=== PATIENT | female | born 1980 | race Caucasian/White ===

== ENCOUNTER → 2022-01-23 09:22 | Outpatient (CLI) | payer OTHER, SELFPAY ==
[2022-01-22 19:01] LABS: Alanine Aminotransferase 35 U/L (12-78); Albumin Level 3.8 g/dl (3.5-5.0); Albumin/Globulin Ratio 1.7 (1.1-1.8); Alkaline Phosphatase 51 U/L (38-126); Anion Gap 9.3 mEq/L (5-15); Aspartate Amino Transferase 56 U/L (14-36); Blood Urea Nitrogen 12 mg/dl (7-17); Calcium 9.1 mg/dl (8.4-10.2); Carbon Dioxide 24 mmol/L (22.0-30.0); Chloride 107 mmol/L (98-107); Estimated Glomerular Filt Rate 135 ml/min (>60); GFR (African American) 163 ML/MIN (>60); Globulin 2.3 g/dL (1.3-3.2); Glucose 125 mg/dl (74-100); Potassium 4.3 mmoL/L (3.5-5.1); Sodium 136 mmol/L (136-145); Total Protein,Serum 6.1 g/dl (6.3-8.2)
[2022-01-22 19:04] LABS: Bilirubin,Total < 0.1 mg/dl (0.2-1.3)
[2022-01-22 19:25] LABS: Thyroid Stimulating Hormone 1.41 uIU/mL (0.465-4.68)
== END ==
PROVIDERS: PCP Family Medicine; Visit Provider Family Medicine
DX: F41.8 Other specified anxiety disorders (principal)
CPT/HCPCS: 80053; 84443

== ENCOUNTER → 2022-06-22 08:11 | Outpatient (CLI) | payer OTHER, SELFPAY ==
[2022-07-07 18:55] LABS: Basophils # 0.1 K/mm3 (0-0.2); Basophils % 0.9 % (0.1-2.0); Eosinophils % 0.6 % (0.1-12.0); Hematocrit 38.7 % (37.0-47.0); Hemoglobin 11.8 g/dL (12.2-16.2); Lymphocytes # 1.6 K/mm3 (0.7-4.5); Lymphocytes % 21.6 % (10-50); Mean Corpuscular HGB Conc 30.3 g/dL (31.8-35.4); Mean Corpuscular Hemoglobin 30.7 pg (27.0-31.2); Monocytes # 0.4 K/mm3 (0.1-1.0); Monocytes % 5.9 % (1.7-9.3); Neutrophils # 5.3 K/mm3 (1.8-7.8); Platelet Count 218 K/mm3 (142-424); Red Blood Count 3.83 M/mm3 (4.20-5.40); Red Cell Distribution Width 15.6 % (11.5-17.5); White Blood Count 7.5 K/mm3 (4.8-10.8)
[2022-07-07 18:57] LABS: Alanine Aminotransferase 26 U/L (12-78); Albumin Level 4.1 g/dl (3.5-5.0); Albumin/Globulin Ratio 1.8 (1.1-1.8); Alkaline Phosphatase 47 U/L (38-126); Aspartate Amino Transferase 46 U/L (14-36); Bilirubin,Total 0.3 mg/dl (0.2-1.3); Blood Urea Nitrogen 13 mg/dl (7-17); Calcium 8.4 mg/dl (8.4-10.2); Carbon Dioxide 25 mmol/L (22.0-30.0); Chloride 106 mmol/L (98-107); Estimated Glomerular Filt Rate 91 ml/min (>60); GFR (African American) 111 ML/MIN (>60); Globulin 2.3 g/dL (1.3-3.2); Glucose 106 mg/dl (74-100); Sodium 137 mmol/L (136-145); Total Protein,Serum 6.4 g/dl (6.3-8.2)
== END ==
PROVIDERS: PCP Family Medicine; Visit Provider Family Medicine
DX: J32.9 Chronic sinusitis, unspecified (principal)
CPT/HCPCS: 80053; 85025

== ENCOUNTER 2024-02-21 14:29 | Outpatient (CLI) | payer OTHER, SELFPAY ==
[2024-02-21 22:08] LABS: Basophils % 0.7 % (0.1-2.0); Eosinophils % 0.7 % (0.1-12.0); Hemoglobin 14.8 g/dL (12.2-16.2); Lymphocytes # 1.9 K/mm3 (0.7-4.5); Lymphocytes % 35.8 % (10-50); Mean Corpuscular HGB Conc 31.5 g/dL (31.8-35.4); Mean Corpuscular Hemoglobin 34.2 pg (27.0-31.2); Mean Corpuscular Volume 108.4 fl (81-99); Mean Platelet Volume 9.3 fl (7.4-10.4); Monocytes # 0.2 K/mm3 (0.1-1.0); Monocytes % 4.4 % (1.7-9.3); Neutrophils # 3.1 K/mm3 (1.8-7.8); Neutrophils % 58.4 % (37.0-80.0); Platelet Count 178 K/mm3 (142-424); Red Blood Count 4.33 M/mm3 (4.20-5.40); Red Cell Distribution Width 12.8 % (11.5-17.5); White Blood Count 5.3 K/mm3 (4.8-10.8)
[2024-02-21 22:26] LABS: Alanine Aminotransferase 36 U/L (12-78); Albumin/Globulin Ratio 1.5 (1.1-1.8); Alkaline Phosphatase 46 U/L (38-126); Anion Gap 9.2 mEq/L (5-15); Aspartate Amino Transferase 64 U/L (14-36); Bilirubin,Total 0.6 mg/dl (0.2-1.3); Blood Urea Nitrogen 9 mg/dl (7-17); Calcium 9.5 mg/dl (8.4-10.2); Carbon Dioxide 27 mmol/L (22.0-30.0); Chloride 102 mmol/L (98-107); Estimated Glomerular Filt Rate 90 ml/min (>60); GFR (African American) 109 ML/MIN (>60); Globulin 2.6 g/dL (1.3-3.2); Glucose 124 mg/dl (74-100); Potassium 4.2 mmoL/L (3.5-5.1); Sodium 134 mmol/L (136-145); Total Protein,Serum 6.6 g/dl (6.3-8.2)
[2024-02-21 22:50] LABS: Thyroid Stimulating Hormone 2.95 uIU/mL (0.465-4.68)
== END 2024-02-21 23:59 | disposition home or self-care (01) ==
LOC: LAB.DROPOF 02-22 13:54
PROVIDERS: PCP Family Medicine; Visit Provider Family Medicine
DX: I10 Essential (primary) hypertension (principal); F41.8 Other specified anxiety disorders
CPT/HCPCS: 80050; 80053; 84443; 85025

== ENCOUNTER 2024-03-06 12:08 | Outpatient (CLI) | payer OTHER, SELFPAY ==
[2024-03-06 18:46] LABS: Basophils % 0.8 % (0.1-2.0); Eosinophils % 0.8 % (0.1-12.0); Hematocrit 46.2 % (37.0-47.0); Hemoglobin 14.6 g/dL (12.2-16.2); Lymphocytes # 2.4 K/mm3 (0.7-4.5); Lymphocytes % 46.2 % (10-50); Mean Corpuscular HGB Conc 31.6 g/dL (31.8-35.4); Mean Corpuscular Hemoglobin 33.8 pg (27.0-31.2); Mean Corpuscular Volume 107.1 fl (81-99); Mean Platelet Volume 9.6 fl (7.4-10.4); Monocytes # 0.3 K/mm3 (0.1-1.0); Monocytes % 5.7 % (1.7-9.3); Neutrophils # 2.4 K/mm3 (1.8-7.8); Neutrophils % 46.5 % (37.0-80.0); Platelet Count 191 K/mm3 (142-424); Red Blood Count 4.31 M/mm3 (4.20-5.40); Red Cell Distribution Width 12.8 % (11.5-17.5); White Blood Count 5.2 K/mm3 (4.8-10.8)
[2024-03-06 19:24] LABS: Alanine Aminotransferase 45 U/L (12-78); Albumin Level 3.9 g/dl (3.5-5.0); Albumin/Globulin Ratio 1.4 (1.1-1.8); Alkaline Phosphatase 40 U/L (38-126); Anion Gap 7.9 mEq/L (5-15); Aspartate Amino Transferase 73 U/L (14-36); Bilirubin,Total 0.7 mg/dl (0.2-1.3); Blood Urea Nitrogen 8 mg/dl (7-17); Calcium 9.3 mg/dl (8.4-10.2); Carbon Dioxide 29 mmol/L (22.0-30.0); Chloride 105 mmol/L (98-107); Estimated Glomerular Filt Rate 108 ml/min (>60); GFR (African American) 131 ML/MIN (>60); Globulin 2.8 g/dL (1.3-3.2); Glucose 104 mg/dl (74-100); Potassium 4.9 mmoL/L (3.5-5.1); Sodium 137 mmol/L (136-145); Total Protein,Serum 6.7 g/dl (6.3-8.2)
[2024-03-06 20:33] LABS: Folate 7.51 ng/mL; Vitamin B12 495 pg/mL (239-931)
== END 2024-03-06 23:59 | disposition home or self-care (01) ==
LOC: LAB.DROPOF 03-07 12:08
PROVIDERS: PCP Family Medicine; Visit Provider Family Medicine
DX: D75.89 Other specified diseases of blood and blood-forming organs (principal); Z86.16 Personal history of COVID-19
CPT/HCPCS: 80053; 82607; 82746; 85025

== ENCOUNTER 2024-03-25 11:34 | Emergency (ER) | payer OTHER, SELFPAY ==
[2024-03-25 11:35] VITALS: BP 121/83; PULSE 80; RESP 13; TEMP 36.8; O2SAT 99; BMI 22.7
--- NOTE | 2024-03-25 12:15 | XR_ITS ---
PROCEDURE INFORMATION: Exam: XR Left Wrist Exam date and time: 03/25/2024 1:26 PM Age: 43 years old Clinical indication: Injury or trauma; Fall; Blunt trauma (contusions or hematomas); Wrist; Left; Additional info: Fall, wrist pain TECHNIQUE: Imaging protocol: Radiologic exam of the left wrist. Views: 3 or more views. COMPARISON: CR XR FOREARM LT 2V 03/25/2024 1:26 PM FINDINGS: Bones/joints: Incomplete visualization of the scaphoid bone. Could not exclude subtle fracture. Soft tissues: Mild soft tissue swelling dorsal aspect of the wrist. IMPRESSION: 1. Incomplete visualization of the scaphoid bone. Could not exclude subtle fracture. 2. Recommend follow-up with scaphoid projections to exclude acute injury.
--- NOTE | 2024-03-25 12:15 | XR_ITS ---
PROCEDURE INFORMATION: Exam: XR Left Forearm Exam date and time: 03/25/2024 1:26 PM Age: 43 years old Clinical indication: Injury or trauma; Fall; Blunt trauma (contusions or hematomas); Arm, lower; Left; Additional info: Fall, wrist pain TECHNIQUE: Imaging protocol: Radiologic exam of the left forearm. Views: 2 views. COMPARISON: CR XR HAND LT MIN 3V 03/25/2024 1:26 PM FINDINGS: Bones/joints: Normal. Soft tissues: Mild soft tissue swelling dorsal aspect of the wrist. IMPRESSION: No acute findings.
--- NOTE | 2024-03-25 12:15 | CT_ITS ---
PROCEDURE INFORMATION: Exam: CT Head Without Contrast Exam date and time: 03/25/2024 1:15 PM Age: 43 years old Clinical indication: Injury or trauma; Fall; Blunt trauma (contusions or hematomas); Additional info: Fall, + loc TECHNIQUE: Imaging protocol: Computed tomography of the head without contrast. Radiation optimization: All CT scans at this facility use at least one of these dose optimization techniques: automated exposure control; mA and/or kV adjustment per patient size (includes targeted exams where dose is matched to clinical indication); or iterative reconstruction. COMPARISON: No relevant prior studies available. FINDINGS: Brain: There is no evidence of acute parenchymal hemorrhage, extra-axial collection, or acute infarction. There is no mass effect, midline shift, or downward herniation. Cerebral ventricles: No ventriculomegaly. Paranasal sinuses: Visualized sinuses are unremarkable. No fluid levels. Mastoid air cells: Visualized mastoid air cells are well aerated. Bones: Unremarkable. No acute fracture. Soft tissues: Unremarkable. IMPRESSION: No acute intracranial abnormality.
--- NOTE | 2024-03-25 12:15 | XR_ITS ---
PROCEDURE INFORMATION: Exam: XR Left Hand Exam date and time: 03/25/2024 1:26 PM Age: 43 years old Clinical indication: Injury or trauma; Fall; Blunt trauma (contusions or hematomas); Hand; Left; Additional info: Fall, wrist pain TECHNIQUE: Imaging protocol: Radiologic exam of the left hand. Views: 3 or more views. COMPARISON: CR XR FOREARM LT 2V 03/25/2024 1:26 PM FINDINGS: Bones/joints: Incomplete visualization of the scaphoid bone. Recommend follow-up scaphoid projections to exclude acute injury. Soft tissues: Mild soft tissue swelling dorsal aspect of the wrist. IMPRESSION: 1. Mild soft tissue swelling dorsal aspect of the wrist. 2. Incomplete visualization of the scaphoid bone. Recommend follow-up scaphoid projections to exclude acute injury.
--- NOTE | 2024-03-25 12:17 | CT_ITS ---
PROCEDURE INFORMATION: Exam: CT Thoracic Spine Without Contrast Exam date and time: 03/25/2024 1:20 PM Age: 43 years old Clinical indication: Injury or trauma; Fall; Blunt trauma (contusions or hematomas); Additional info: Trauma, critical injury suspected TECHNIQUE: Imaging protocol: Computed tomography of the thoracic spine without contrast. Radiation optimization: All CT scans at this facility use at least one of these dose optimization techniques: automated exposure control; mA and/or kV adjustment per patient size (includes targeted exams where dose is matched to clinical indication); or iterative reconstruction. COMPARISON: CT CERVICAL SPINE WO CON 03/25/2024 1:18 PM FINDINGS: Bones/joints: Mild compression fracture deformity anterior aspect T4. Soft tissues: Unremarkable. IMPRESSION: Mild compression fracture deformity anterior aspect T4.
--- NOTE | 2024-03-25 12:17 | CT_ITS ---
PROCEDURE INFORMATION: Exam: CT Cervical Spine Without Contrast Exam date and time: 03/25/2024 1:18 PM Age: 43 years old Clinical indication: Injury or trauma; Fall; Blunt trauma; Additional info: Trauma, critical injury suspected TECHNIQUE: Imaging protocol: Computed tomography of the cervical spine without contrast. Radiation optimization: All CT scans at this facility use at least one of these dose optimization techniques: automated exposure control; mA and/or kV adjustment per patient size (includes targeted exams where dose is matched to clinical indication); or iterative reconstruction. COMPARISON: CT HEAD/BRAIN WO CON 03/25/2024 1:15 PM FINDINGS: Bones/joints: No acute fracture. There is straightening of cervical lordosis. There is slight grade 1 anterolisthesis of C3 on C4. There is mild multilevel degenerative disc disease and spondylosis. There is mild spinal canal stenosis at C4-C5 and C5-C6 secondary to disc osteophyte bulging. Lungs: Lung apices are normal. Soft tissues: Unremarkable. IMPRESSION: No acute findings.
--- NOTE | 2024-03-25 12:17 | XR_ITS ---
PROCEDURE INFORMATION: Exam: XR Chest Exam date and time: 03/25/2024 1:26 PM Age: 43 years old Clinical indication: Injury or trauma; Fall; Blunt trauma (contusions or hematomas) TECHNIQUE: Imaging protocol: Radiologic exam of the chest. Views: 1 view. COMPARISON: CT THORACIC SPINE WO CON 03/25/2024 1:20 PM FINDINGS: Lungs: Unremarkable. No consolidation. Pleural spaces: Unremarkable. No pleural effusion. No pneumothorax. Heart/Mediastinum: Unremarkable. No cardiomegaly. Bones/joints: Unremarkable. IMPRESSION: No acute findings.
--- NOTE | 2024-03-25 12:17 | XR_ITS ---
PROCEDURE INFORMATION: Exam: XR Pelvis Exam date and time: 03/25/2024 1:26 PM Age: 43 years old Clinical indication: Injury or trauma; Fall; Blunt trauma (contusions or hematomas); Does not apply; Pelvic region TECHNIQUE: Imaging protocol: Radiologic exam of the pelvis. Views: 1 or 2 view. COMPARISON: CT LUMBAR SPINE WO CON 03/25/2024 1:24 PM FINDINGS: Bones/joints: Unremarkable. No acute fracture. Soft tissues: Unremarkable. IMPRESSION: No acute findings.
--- NOTE | 2024-03-25 12:17 | CT_ITS ---
PROCEDURE INFORMATION: Exam: CTA Abdomen and Pelvis With Contrast Exam date and time: 03/25/2024 1:29 PM Age: 43 years old Clinical indication: Injury or trauma; Fall; Blunt trauma; Pelvic area; Bilateral; Additional info: Trauma, critical injury suspected TECHNIQUE: Imaging protocol: Computed tomographic angiography of the abdomen and pelvis with contrast. Exam focused on the arteries. 3D rendering (Not supervised by radiologist): MIP and/or 3D reconstructed images were created by the technologist. Radiation optimization: All CT scans at this facility use at least one of these dose optimization techniques: automated exposure control; mA and/or kV adjustment per patient size (includes targeted exams where dose is matched to clinical indication); or iterative reconstruction. Contrast material: ISVOUE 370; Contrast volume: 80 ml; Contrast route: INTRAVENOUS (IV); COMPARISON: CR XR PELVIS 1-2V 03/25/2024 1:26 PM FINDINGS: Diaphragm: Small hiatal hernia Aorta: No aortic aneurysm. No aortic dissection. Celiac trunk and mesenteric arteries: No occlusion or significant stenosis. Renal arteries: No occlusion or significant stenosis. Right iliac arteries: No occlusion or significant stenosis. Left iliac arteries: No occlusion or significant stenosis. Liver: The liver is unremarkable. Gallbladder and biliary ducts: Gallbladder unremarkable Pancreas: Pancreas unremarkable Spleen: The spleen is unremarkable. Adrenal glands: Adrenal glands unremarkable. Kidneys and ureters: Unremarkable. No solid mass. No hydronephrosis. Stomach and bowel: Mild stool burden Appendix: Appendix unremarkable Intraperitoneal space: Unremarkable. No free air. No significant fluid collection. Lymph nodes: Unremarkable. No enlarged lymph nodes. Urinary bladder: Unremarkable. No mass. Reproductive: Unremarkable as visualized. Bones/joints: Previously described left L1 through L4 transverse spinous process fractures again demonstrated. Soft tissues: Unremarkable. IMPRESSION: 1. No evidence of acute intra-abdominal abnormality. 2. Previously described left L1 through L4 transverse spinous process fractures again demonstrated.
--- NOTE | 2024-03-25 12:17 | CT_ITS ---
PROCEDURE INFORMATION: Exam: CT Lumbar Spine Without Contrast Exam date and time: 03/25/2024 1:24 PM Age: 43 years old Clinical indication: Injury or trauma; Fall; Blunt trauma (contusions or hematomas); Additional info: Trauma, critical injury suspected TECHNIQUE: Imaging protocol: Computed tomography of the lumbar spine without contrast. Radiation optimization: All CT scans at this facility use at least one of these dose optimization techniques: automated exposure control; mA and/or kV adjustment per patient size (includes targeted exams where dose is matched to clinical indication); or iterative reconstruction. COMPARISON: CT THORACIC SPINE WO CON 03/25/2024 1:20 PM FINDINGS: Bones/joints: nondisplaced fractures left transverse spinous process L1, L2, L3, L4. Soft tissues: Unremarkable. IMPRESSION: Nondisplaced fractures left transverse spinous process L1, L2, L3, L4.
--- NOTE | 2024-03-25 12:17 | CT_ITS ---
PROCEDURE INFORMATION: Exam: CTA Chest With Contrast Exam date and time: 03/25/2024 1:29 PM Age: 43 years old Clinical indication: Injury or trauma; Fall; Blunt trauma (contusions or hematomas); Additional info: Trauma, critical injury suspected TECHNIQUE: Imaging protocol: Computed tomographic angiography of the chest with contrast. Exam focused on the arteries. 3D rendering (Not supervised by radiologist): MIP and/or 3D reconstructed images were created by the technologist. Radiation optimization: All CT scans at this facility use at least one of these dose optimization techniques: automated exposure control; mA and/or kV adjustment per patient size (includes targeted exams where dose is matched to clinical indication); or iterative reconstruction. Contrast material: ISOVUE 370; Contrast volume: 80 ml; Contrast route: INTRAVENOUS (IV); COMPARISON: CR XR CHEST PORTABLE 03/25/2024 1:26 PM FINDINGS: Pulmonary arteries: Normal. No pulmonary emboli. Aorta: Regions of atherosclerotic vascular calcification involving the aortic arch. Lungs: Unremarkable. No consolidation. No masses. Pleural spaces: Unremarkable. No pneumothorax. No pleural effusion. Heart: Unremarkable. No cardiomegaly. No pericardial effusion. Coronary arteries: No evidence of coronary artery calcification Lymph nodes: Unremarkable. No enlarged lymph nodes. Bones/joints: Mild T4 compression fracture deformity discussed on CT thoracic spine report also on this date. Soft tissues: Unremarkable. IMPRESSION: No evidence of acute intrathoracic abnormality.
--- NOTE | 2024-03-25 12:18 | ED_ITS ---
Discharge Plan Disposition Patient Disposition: Home, Self-Care Condition: Fair Prescriptions Prescriptions: New methocarbamol 1,000 mg tablet 1,000 mg PO Q8H Qty: 30 0RF acetaminophen [Tylenol Extra Strength] 500 mg tablet 1,000 mg PO Q6H PRN (Reason: pain) Qty: 30 0RF oxycodone 5 mg tablet 5 mg PO .q8h prn PRN (Reason: severe pain (scale score 7-10)) Qty: 9 0RF naproxen 500 mg tablet 500 mg PO BID Qty: 14 0RF lidocaine 5 % adhesive patch,medicated 1 patch topical DAILY Qty: 15 0RF Rx Instructions: leave on most painful area for up to 12 hrs No Action triamterene-hydrochlorothiazid [Maxzide-25mg] 37.5-25 mg tablet 1 tab PO DAILY Qty: 30 3RF methylprednisolone [Medrol (Paramjit)] 4 mg tablets,dose pack See Rx Instructions PO PER PKG DIR Qty: 21 0RF Rx Instructions: PO PER PKG DIR albuterol sulfate 90 mcg/actuation HFA aerosol inhaler 2 puff inhalation QID Qty: 8.5 0RF hydrocodone-homatropine 5-1.5 mg tablet 1 tab PO TID PRN (Reason: cough) Qty: 20 0RF omeprazole 40 mg capsule,delayed release(DR/EC) 40 mg PO DAILY Qty: 30 4RF losartan 50 mg tablet See Rx Instructions .ROUTE .COMPLEX Qty: 60 2RF Dose Instruction: TAKE 1 TABLET BY MOUTH DAILY Rx Instructions: TAKE 1 TABLET BY MOUTH DAILY lorazepam 0.5 mg tablet 0.5 mg PO TID PRN (Reason: anxiety) Qty: 90 2RF valacyclovir 500 mg tablet See Rx Instructions .ROUTE .COMPLEX Qty: 30 0RF Dose Instruction: TAKE 1 TABLET BY MOUTH DAILY NEEDED FOR COLD SORES Rx Instructions: TAKE 1 TABLET BY MOUTH DAILY NEEDED FOR COLD SORES metoprolol succinate 50 mg tablet extended release 24 hr See Rx Instructions .ROUTE .COMPLEX Qty: 30 3RF Dose Instruction: TAKE 1 TABLET BY MOUTH DAILY Rx Instructions: TAKE 1 TABLET BY MOUTH DAILY levofloxacin 500 mg tablet 500 mg PO Q24H Qty: 10 0RF duloxetine 60 mg capsule,delayed release(DR/EC) See Rx Instructions .ROUTE .COMPLEX Qty: 90 3RF Dose Instruction: TAKE 1 CAPSULE BY MOUTH DAILY Rx Instructions: TAKE 1 CAPSULE BY MOUTH DAILY Referrals Follow up/Referrals: Roberta Lind MD [Primary Care Provider] - See instructions Activity Restrictions/Add. Instructions Additional Instructions/Restrictions: You will receive a phone call from spine clinic to schedule a follow-up appointment. If you develop worsening pain numbness or tingling in your groin or episodes of bowel or bladder incontinence go immediately to [facility] emergency department for evaluation by spine doctors. Clinical Impressions Clinical Impression: Fracture of spine Print Language Print Language: Turkmen Discharge ED Provider: Asiya Bailey General Adult HPI General Chief complaint: Fall Stated complaint: ao 03/24, pain on left side Time Seen by Provider: 03/25/24 12:07 Mode of Arrival: Ambulatory Source of Information: Patient Limitations: No Limitations Description of Symptoms (Recalled from ER Triage Doc. by RN): pt presents to ED with c/o left sided wirst pain and lower back pain. pt reports she had a fall last night down some concrete steps while trying to feed her chickens. History of Present Illness HPI narrative: Patient is a 43-year-old with past medical history of tobacco use disorder and hypertension presents to the emergency department after a 15 foot fall. Positive loss of consciousness did hit her head complaining of left wrist and left chest wall pain and lower back pain. This injury happened yesterday night. Patient was able to ambulate afterwards. No blood thinner use pain is 10 out of 10. + Pleuritic chest pain Related Data Previous Rx's ?Medication ?Instructions ?Recorded omeprazole 40 mg capsule,delayed 40 mg PO DAILY hypertension #30 05/04/22 release caps triamterene 37.5 1 tab PO DAILY #30 tabs 02/22/23 mg-hydrochlorothiazide 25 mg tablet (Maxzide-25mg) losartan 50 mg tablet See Rx Instructions .Route 10/13/23 .COMPLEX #60 tabs lorazepam 0.5 mg tablet 0.5 mg PO TID PRN anxiety #90 tabs 12/27/23 valacyclovir 500 mg tablet See Rx Instructions .Route 01/24/24 .COMPLEX #30 tabs metoprolol succinate 50 mg See Rx Instructions .Route 02/10/24 tablet,extended release 24 hr .COMPLEX #30 tabs albuterol sulfate 90 mcg/actuation 2 puff inhalation QID cough #8.5 03/06/24 aerosol inhaler grams hydrocodone-homatropine 5 mg-1.5 1 tab PO TID PRN cough #20 tabs 03/06/24 mg tablet methylprednisolone 4 mg tablets in See Rx Instructions PO PER PKG DIR 03/06/24 a dose pack (Medrol (Paramjit)) #21 tabs levofloxacin 500 mg tablet 500 mg PO Q24H #10 tabs 03/08/24 duloxetine 60 mg capsule,delayed See Rx Instructions .Route 03/20/24 release .COMPLEX #90 caps acetaminophen 500 mg tablet 1,000 mg (2 x 500 mg) PO Q6H PRN 03/25/24 (Tylenol Extra Strength) pain #30 tabs lidocaine 5 % topical patch 1 patch topical DAILY #15 ea 03/25/24 methocarbamol 1,000 mg tablet 1,000 mg PO Q8H #30 tabs 03/25/24 naproxen 500 mg tablet 500 mg PO BID #14 tabs 03/25/24 oxycodone 5 mg tablet 5 mg PO .q8h prn PRN severe pain 03/25/24 (scale score 7-10) #9 tabs Allergies Allergy/AdvReac Type Severity Reaction Status Date / Time No Known Allergies Allergy Verified 03/06/24 12:25 [facility] Disclaimer: The information contained in this section may have been updated after the patient was seen, as this information can be updated by other users. Medical History (Updated 03/25/24 @ 15:48 by Asiya Bailey MD) Persistent cough Macrocytosis Headache History of COVID-19 Medial epicondylitis of both elbows Fibrocystic breast disease (FCBD) Weight disorder Low back pain Essential hypertension Sinusitis Menorrhagia Hypertension Barretts esophagus Epigastric abdominal pain Dyspepsia Situational depression Atrial fibrillation Anxiety Surgical History [place] teeth extracted H/O hernia repair H/O section Family History Other Cancer Diabetes Heart attack Social History Smoking Status: Current every day smoker alcohol intake: current alcohol intake frequency: holidays/special occasions only current occupational status: unemployed Travel in the last 8 weeks: None ROS Obtained: Yes All systems reviewed & no additional complaints except as documented Physical Exam General General appearance: alert and in no apparent distress Head Head exam: atraumatic Eye Eye exam: Present normal appearance and PERRL Neck Neck exam: Present full ROM; Absent tenderness Chest Chest inspection: Present tenderness (Left anterior chest wall) Respiratory Respiratory exam: Present normal lung sounds bilaterally; Absent respiratory distress Cardiovascular Cardiovascular exam: Present regular rate and normal rhythm Abdominal Exam Abdominal exam: Present soft; Absent distention or tenderness Extremities Exam Extremities exam: Present tenderness (Tenderness with decreased range of motion of the left wrist, neurovascular intact distal to injury) Back Exam Back exam: Present tenderness (T and L-spine) Neurological Exam Neurological exam: Present alert and oriented X3; Absent motor sensory deficit Medical Decision Making Medical Records Screening: Per USPSTF and CDC recommendations, given the prevalence of disease in our region, it is our hospital?s policy to screen for HIV and viral Hepatitis for all patients aged 18 and over and those with ongoing risk factors. Jared Inquiry Pt receiving controlled substance: No Vital Signs: 03/25/24 11:35 03/25/24 15:08 03/25/24 15:45 Temperature 98.2 F 98.0 F Temperature Source Oral Oral Pulse Rate 76 78 Pulse Rate [Left Radial] 80 Respiratory Rate 13 18 Blood Pressure 157/87 H 151/87 H Blood Pressure [Right Arm] 121/83 Blood Pressure Mean [Right Arm] 95 Blood Pressure Source Automatic Cuff Blood Pressure Position Sitting 02 Sat by Pulse Oximetry 99 99 Oxygen Delivery Method Room Air Room Air Room Air Lab Data Lab Results 03/25/24 11:55: WBC 5.6, RBC 4.25, Hgb 14.5, Hct 45.3, MCV 106.5 H, MCH 34.2 H, MCHC 32.1, RDW 12.9, Plt Count 183, MPV 7.0 L, Neut % (Auto) 69.7, Lymph % (Auto) 25.7, [place] % (Auto) 3.5, Eos % (Auto) 0.5, Baso % (Auto) 0.5, Neut # (Auto) 3.9, Lymph # (Auto) 1.4, [place] # (Auto) 0.2, Eos # (Auto) 0.0, Baso # (Auto) 0.0, PT 10.3, INR 0.91, APTT 25.9, Sodium 138, Potassium 3.5, Chloride 106, Carbon Dioxide 26, Anion Gap 9.5, BUN 4 L, Creatinine 0.70, Estimated Creat Clear 105, Estimated GFR 90, Est GFR ( Amer) 109, Glucose 117 H, Calcium 9.8, Total Bilirubin 0.6, AST 73 H, ALT 35, Alkaline Phosphatase 46, Total Protein 7.1, Albumin 4.5, Globulin 2.6, Albumin/Globulin Ratio 1.7, Serum HCG, Qual Negative, HIV 1&2 Antibody Rapid Nonreactive 03/25/24 11:55 03/25/24 11:55 Orders (Tests/Meds): ED MEDICATIONS Discontinued Medications Generic Name Dose Route Start Last Admin Trade Name Freq PRN Reason Stop Dose Admin Acetaminophen 1,000 mg 03/25/24 15:34 03/25/24 15:46 Acetaminophen 500mg Tab PO 03/25/24 15:35 1,000 mg ONCE ONE Administration Hydromorphone HCl 1 mg 03/25/24 14:53 03/25/24 15:09 Hydromorphone 2mg/Ml Syringe IV 03/25/24 14:54 1 mg ONCE ONE Administration Iopamidol 80 ml 03/25/24 13:27 03/25/24 13:29 Iopamidol-370 (76%);100ml Bottle IV 03/25/24 13:28 80 ml ONCE ONE Administration Methocarbamol 1,000 mg 03/25/24 21:00 03/25/24 15:46 Methocarbamol 500mg Tablet PO 04/24/24 20:59 1,000 mg BID BACILIO Administration Morphine Sulfate 4 mg 03/25/24 12:17 03/25/24 12:39 Morphine 4mg/Ml Syringe IV 03/25/24 12:18 4 mg ONCE ONE Administration Naproxen 500 mg 03/25/24 15:34 Naproxen 500mg Tablet PO 04/24/24 15:33 BIDP PRN pain Oxycodone HCl 5 mg 03/25/24 15:34 03/25/24 15:46 Oxycodone 5mg Immediate Release Tablet PO 04/24/24 15:33 5 mg Q4HP PRN Administration Severe Pain (7-10) Sodium Chloride 10 ml 03/25/24 12:17 Sodium Chloride 0.9% 10ml Flush Syringe IV 04/24/24 12:16 NEEDED PRN Maintain IV Site Sodium Chloride 50 ml 03/25/24 13:27 03/25/24 13:29 0.9 % Sodium Chloride 50 Ml Vial IV 03/25/24 13:28 50 ml ONCE ONE Administration Sodium Chloride 10 ml 03/25/24 13:27 03/25/24 13:29 Sodium Chloride 0.9% 10ml Syr (Rad Only) IV 04/24/24 13:26 10 ml NEEDED PRN Administration Maintain IV Site ORDERS Category Date Time Status CT angio abdomen pelvis Stat Cat Scan 03/25/24 12:[address] angio chest - dissection Stat Cat Scan 03/25/24 12:[address] cervical spine wo con Stat Cat Scan 03/25/24 12:[address] head/brain wo con Stat Cat Scan 03/25/24 12:[address] lumbar spine wo con Stat Cat Scan 03/25/24 12:[address] thoracic spine wo con Stat Cat Scan 03/25/24 12:17 Completed Forearm XR left 2 views [XR forearm LT 2V] Stat Exams 03/25/24 12:15 Completed Hand XR left minimum 3 views [XR hand LT min 3V] Stat Exams 03/25/24 12:15 Completed Wrist XR left minimum 3 views [XR wrist LT min 3V] Stat Exams 03/25/24 12:15 Completed XR chest portable Stat Exams 03/25/24 12:17 Completed XR pelvis 1-2V Stat Exams 03/25/24 12:17 Completed Activated Partial Thrombo Time Stat Lab 03/25/24 11:55 Completed Complete Blood Count Auto Diff Stat Lab 03/25/24 11:55 Completed Comprehensive Metabolic Panel Stat Lab 03/25/24 11:55 Completed HCG Qualitative, Serum Stat Lab 03/25/24 11:55 Completed HIV (1&2) Antibody Rapid Stat Lab 03/25/24 11:55 Completed Hep C Ab with Reflex to RNA Stat Lab 03/25/24 11:55 Received Prothrombin Time INR Stat Lab 03/25/24 11:55 Completed Medical Decision Narrative: In summary, this 43-year-old female presents to the emergency department today with chest left wrist and back pain after a fall. On initial evaluation patient is hemodynamically stable saturating appropriately on room air afebrile no acute distress. Differential diagnosis includes but is not limited to intracranial hemorrhage spine fracture hemothorax pneumothorax rib fractures intra-abdominal injury included solid organ or hollow viscus injury hemoperitoneum extremity fracture. Based on these concerns, I ordered CT head spines CTA chest abdomen pelvis, x-rays of the left hand left forearm and left wrist laboratory workup including CBC PT INR PTT CMP hCG. Patient received 4 mg of morphine for treatment. Labs personally reviewed demonstrate normal hemoglobin negative XR personally interpreted demonstrates no acute fracture left upper extremity CT imaging personally interpreted demonstrate L1-4 tp fx, t4 compression fx. I had an interactive discussion with [facility]. Recommendations to ambulate and if patient is able to ambulate recommended outpatient follow-up. Patient ambulated without difficulty pain controlled with oral pain medications. Patient was deemed appropriate to discharge with outpatient follow-up with [facility] with strict return precautions. Critical Care Critical Care Time Critical Care Time: No
[2024-03-25 12:29] LABS: Albumin Level 4.5 g/dl (3.5-5.0); Chloride 106 mmol/L (98-107); Potassium 3.5 mmoL/L (3.5-5.1); Sodium 138 mmol/L (136-145)
[2024-03-25 12:31] LABS: Basophils % 0.5 % (0.1-2.0); Eosinophils % 0.5 % (0.1-12.0); Hematocrit 45.3 % (37.0-47.0); Hemoglobin 14.5 g/dL (12.2-16.2); Lymphocytes # 1.4 K/mm3 (0.7-4.5); Lymphocytes % 25.7 % (10-50); Mean Corpuscular HGB Conc 32.1 g/dL (31.8-35.4); Mean Corpuscular Hemoglobin 34.2 pg (27.0-31.2); Mean Corpuscular Volume 106.5 fl (81-99); Monocytes # 0.2 K/mm3 (0.1-1.0); Monocytes % 3.5 % (1.7-9.3); Neutrophils # 3.9 K/mm3 (1.8-7.8); Neutrophils % 69.7 % (37.0-80.0); Platelet Count 183 K/mm3 (142-424); Red Blood Count 4.25 M/mm3 (4.20-5.40); Red Cell Distribution Width 12.9 % (11.5-17.5); White Blood Count 5.6 K/mm3 (4.8-10.8)
[2024-03-25 12:32] LABS: Alanine Aminotransferase 35 U/L (12-78); Albumin/Globulin Ratio 1.7 (1.1-1.8); Alkaline Phosphatase 46 U/L (38-126); Anion Gap 9.5 mEq/L (5-15); Aspartate Amino Transferase 73 U/L (14-36); Bilirubin,Total 0.6 mg/dl (0.2-1.3); Blood Urea Nitrogen 4 mg/dl (7-17); Calcium 9.8 mg/dl (8.4-10.2); Carbon Dioxide 26 mmol/L (22.0-30.0); Creatinine Clearance Estimated 105 mL/min (50-200); Estimated Glomerular Filt Rate 90 ml/min (>60); GFR (African American) 109 ML/MIN (>60); Globulin 2.6 g/dL (1.3-3.2); Glucose 117 mg/dl (74-100); Total Protein,Serum 7.1 g/dl (6.3-8.2)
[2024-03-25 12:33] LABS: Activated Partial Thrombo Time 25.9 seconds (22.8-30.6); INR 0.91 (0.9-1.1); Prothrombin Time 10.3 seconds (10.1-12.5)
[2024-03-25] MEDS: MORPHINE 4MG/ML SYRINGE 4 MG IV (12:39)
[2024-03-25 12:45] LABS: HIV (1&2) Antibody Rapid NONREACTIVE (NONREACTIVE)
[2024-03-25 12:52] LABS: HCG Qualitative, Serum Negative (Negative)
[2024-03-25] MEDS: SODIUM CHLORIDE 0.9% 10ML SYR (RAD ONLY) 10 ML IV (13:29)
[2024-03-25] MEDS: 0.9 % SODIUM CHLORIDE 50 ML VIAL IV (13:29)
[2024-03-25] MEDS: IOPAMIDOL-370 (76%);100ML BOTTLE 80 ML IV (13:29)
--- NOTE | 2024-03-25 14:50 | PC.NURSE ---
calling [facility] transfer for spine doctor
--- NOTE | 2024-03-25 14:51 | PC.NURSE ---
speaking with spine md at
--- NOTE | 2024-03-25 14:52 | PC.NURSE ---
speaking with [facility]
[2024-03-25 15:08] VITALS: BP 157/87; PULSE 76; O2SAT 99
[2024-03-25] MEDS: HYDROMORPHONE 2MG/ML SYRINGE 1 MG IV (15:09)
[2024-03-25 15:45] VITALS: BP 151/87; PULSE 78; RESP 18; TEMP 36.7; O2SAT 98
[2024-03-25] MEDS: METHOCARBAMOL 500MG TABLET 1000 MG PO (15:46)
[2024-03-25] MEDS: OXYCODONE 5MG IMMEDIATE RELEASE TABLET 5 MG PO (15:46)
[2024-03-25] MEDS: ACETAMINOPHEN 500MG TAB 1000 MG PO (15:46)
[2024-03-26 11:10] LABS: HCV Ab Non Reactive (Non Reactive)
== END 2024-03-25 16:00 | disposition home or self-care (01) ==
PROVIDERS: Emergency Provider Student in an Organized Health Care Education/Training Program; PCP Family Medicine
DX: S22.040A Wedge compression fracture of fourth thoracic vertebra, initial encounter for closed fracture (principal); R07.89 Other chest pain; M25.532 Pain in left wrist; W10.8XXA Fall (on) (from) other stairs and steps, initial encounter
CPT/HCPCS: 70450; 71045; 71275; 72125; 72128; 72131; 72170; 73090; 73110; 73130; 74174; 80053; 84703; 85025; 85610; 85730; 86803; 87389; 96374; 96375; 99285; J1170; J2270; Q9967

== ENCOUNTER 2024-09-14 15:29 | Outpatient (CLI) | payer OTHER, SELFPAY ==
--- NOTE | 2024-09-14 15:30 | MR_ITS ---
FINAL REPORT TECHNIQUE: Multiplanar MR without contrast CLINICAL HISTORY: hx compression fx T4 with reinjury COMPARISON: 03/25/2024 FINDINGS: There is a subtle chronic superior endplate compression fracture of T4. No significant compression deformities are identified. No acute fractures are seen. Marrow signal pattern is unremarkable. Alignment is normal. Thoracic spinal cord shows a normal MR appearance. There is a moderate annular disc bulge at T10-11, asymmetric to the right with right sided canal stenosis. There is a small left lateral canal disc protrusion at T11-12. There is a small right paracentral T7-8 disc protrusion. A few other levels of minimal annular disc bulges are seen without canal stenosis. IMPRESSION: No acute fractures. Very minimal chronic superior endplate compression fracture of T4. Moderate lower thoracic disc disease, most pronounced at T10-11 with right sided canal stenosis. Reviewed, Interpreted and Dictated by Roberta Bey MD Transcribed by Audelia Fletcher Authenticated and [facility]
== END 2024-09-14 23:59 | disposition home or self-care (01) ==
LOC: RAD 15:30
PROVIDERS: PCP Family Medicine; Visit Provider Psychiatry & Neurology Sleep Medicine
DX: M51.34 Other intervertebral disc degeneration, thoracic region (principal); S22.040A Wedge compression fracture of fourth thoracic vertebra, initial encounter for closed fracture; S32.009A Unspecified fracture of unspecified lumbar vertebra, initial encounter for closed fracture
CPT/HCPCS: 72146